=== PATIENT | female | born 1995 | race Caucasian/White ===

== ENCOUNTER 2016-07-25 01:21 | Emergency (ER) | payer MEDICAID ==
[2016-07-25] MEDS ORDERED: HYOSCYAMINE 0.5 MG/ML AMP 1 ML ONE (02:28)
[2016-07-25] MEDS ORDERED: SODIUM CHLORIDE 0.9% 1,000 ML ONE (02:28)
== END 2016-07-25 03:54 | disposition home or self-care (01) ==
LOC: ER 01:21
DX: R10.13 Epigastric pain (principal); R19.7 Diarrhea, unspecified; K29.00 Acute gastritis without bleeding; N39.0 Urinary tract infection, site not specified; R31.9 Hematuria, unspecified
CPT/HCPCS: 36415; 80053; 81001; 83690; 84703; 85025; 86677; 87077; 87088; 87186; 96361; 96374